=== PATIENT | male | born 1995 | race Caucasian/White ===

== ENCOUNTER 2022-08-05 14:47 | Emergency (ER) | payer BC, SELFPAY ==
[2022-08-05 14:57] VITALS: BP 123/75; PULSE 70; PULSE 82; RESP 16; RESP 19; O2SAT 95; O2SAT 97
[2022-08-05 14:58] VITALS: BP 123/75; PULSE 76; RESP 20; TEMP 36.6; O2SAT 98; BMI 40.0
--- NOTE | 2022-08-05 15:09 | ECG_ITS ---
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
--- NOTE | 2022-08-05 15:09 | XR_ITS ---
[address] [address] Patient Name: JADYN LINARES MRN: [id number] date: 1995 Sex: M Assigned Patient Location: ER Current Patient Location: ER Accession/Order Number: [id number] Exam Date: 08/05/2022 15:15 Report Date: 08/05/2022 15:40 At the request of: YENI GALICIA Procedure: XR chest 1V EXAMINATION: XR chest 1V HISTORY: chest tightness COMPARISON: No relevant comparison available. FINDINGS: LUNGS: No significant pulmonary parenchymal abnormalities. VASCULATURE: No increased pulmonary vasculature. PLEURA: No pneumothorax, effusion, or pleural thickening. CARDIAC: No cardiomegaly or cardiac silhouette abnormality. MEDIASTINUM: No visible mass or adenopathy. BONES: No fracture or visible bone lesion. OTHER: Negative. IMPRESSION: 1. No acute cardiopulmonary process. Electronically authenticated by: MUSTAPHA LUJAN Date: 08/05/2022 15:40
[2022-08-05 15:12] VITALS: PULSE 77
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
[2022-08-05] MEDS: IPRATROPIUM/ALBUTEROL SULFATE 3 ML AMPUL.NEB IH (15:55)
[2022-08-05 15:56] VITALS: O2SAT 95
[2022-08-05 16:08] VITALS: BP 128/74
[2022-08-05 16:12] VITALS: BP 123/75; PULSE 82; RESP 16; O2SAT 97
== END 2022-08-05 16:13 | disposition home or self-care (01) ==
PROVIDERS: Emergency Provider Emergency Medicine
DX: R05.9 Cough, unspecified (principal); R09.89 Other specified symptoms and signs involving the circulatory and respiratory systems
CPT/HCPCS: 71045; 93005; 94640; 99284

== ENCOUNTER 2024-07-19 17:46 | Emergency (ER) | payer BC, SELFPAY ==
[2024-07-19 17:48] VITALS: BP 128/81; PULSE 81; TEMP 36.8; O2SAT 100; BMI 37.4
--- NOTE | 2024-07-19 17:58 | ED_ITS ---
HPI HPI - General Adult General Chief complaint: Eye Problems Stated complaint: EYE PROBLEMS Time Seen by Provider: 07/19/24 17:57 Source: patient Limitations: no limitations History of Present Illness HPI narrative: Patient is a 28-year-old male who is presenting to the ER with chief complaint of right eye irritation. Patient wears contacts. Patient has slept with his contacts in for several days. Patient cannot get his contact out today. Patient was squeezing his right eye several times tried to get the contact which he eventually did. Patient has redness at the 3 to 6 o'clock position below the iris of the conjunctivo and sclera. Patient concerned with foreign body. Patient has some mild blurry vision to the right eye, no loss of vision, double vision. Patient denies any type of trauma. Patient does not have any trauma. No other acute complaints. Patient does have an eye physician, Dr. Marks. All systems are negative except as noted/marked. All systems reviewed and otherwise negative. Nurses note and vital signs reviewed and patient is not hypoxic. General: The patient appears well and in no apparent distress. Patient is resting comfortably on cart. Patient is not toxic, lethargic, or listless Skin: Warm, dry, no pallor noted. There is no rash noted. No petechiae, purpura. Head: Normocephalic, atraumatic Eye: Normal conjunctiva to left eye, patient has some redness and clear tearing from the right eye. See procedure note., no drainage, EOMI. PERRL Ears, Nose, Mouth, and Throat: oral mucosa is moist. Nares patent. Mouth without vesicles. Cardiovascular: Regular Rate and Rhythm, no murmur, gallop, rub Respiratory: Patient is in no distress, no accessory muscle use, lungs are clear to auscultation, no wheezing, rales or rhonchi Back: non-tender, GI: no tenderness. Musculoskeletal: Patient has full range of motion of all of the extremities, no motor, sensory, or focal neurological deficits Neurological: A&O x4, normal speech Psychiatric: Cooperative Related Data Previous Rx's ?Medication ?Instructions ?Recorded albuterol sulfate 90 mcg/actuation 2 inh inhalation Q8 H PRN shortness 08/05/22 aerosol inhaler (ProAir HFA) of breath or wheezing #8. 5 grams diclofenac sodium 1 % topical gel 2.25 inch topical QI D PRN 07/19/24 (Voltaren Arthritis Pain) Muscle/joint pain #100 grams Allergies Allergy/AdvReac Type Severity Reaction Status Date / Time No Known Drug Allergies Allergy Verified 08/05/22 14:58 Opioid HPI Opioid Management Most Recent Opioid Data: Last Pain Scale 4 Today, 18:01 [facility] Medical History (Updated 07/19/24 @ 18:21 by Mohsen Ramires MD) History of asthma ?Z87.09 - Personal history of other diseases of the respiratory system (ICD- 10) Social History Smoking status: Never smoker Little interest or pleasure in doing things: not at all Feeling down, depressed, or hopeless: not at all Exam Constitutional Vital Signs, click to edit/add: Last Vital Signs Temp 98.2 F 07/19/24 17:48 Pulse 81 07/19/24 17:48 Resp 18 07/19/24 17:48 BP 128/81 07/19/24 17:48 Pulse Ox 100 07/19/24 17:48 O2 Del Method Room Air 07/19/24 17:48 Course Vital Signs Vital signs: Vital Signs Temperature 98.2 F 07/19/24 17:48 Pulse Rate 81 07/19/24 17:48 Respiratory Rate 18 07/19/24 17:48 Blood Pressure 128/81 07/19/24 17:48 Pulse Oximetry 100 07/19/24 17:48 Oxygen Delivery Method Room Air 07/19/24 17:48 Temperature 98.2 F 07/19/24 17:48 Pulse Rate 81 07/19/24 17:48 Respiratory Rate 18 07/19/24 17:48 Blood Pressure 128/81 07/19/24 17:48 Pulse Oximetry 100 07/19/24 17:48 Oxygen Delivery Method Room Air 07/19/24 17:48 Medical Decision Making MDM Narrative Medical decision making narrative: Procedure note: Right eye evaluation. Patient's lower and upper eyelid was inverted, patient has no foreign body, no pieces of contact noted. Patient has no obvious ulceration noted. Patient had 3 drops of tetracaine placed in the right eye. Patient had good anesthetic effect. Patient had fluorescein drop placed in the right eye, patient has no obvious signs of corneal abrasion or corneal ulcer. Patient does have redness to the 3 to's o'clock position from the irritation to the conjunctival/sclera from him try to get the contact out. No abrasion noted. Patient most likely has early iritis. Patient has no obvious abrasion. Patient does have redness to the eye with clear tearing. No foreign body noted. Patient will be treated for iritis. Patient is given erythromycin ointment. Voltaren drops. Patient states that irritation is mild, home atropine drops were not prescribed at this time. Patient can alternate Tylenol and Motrin. Patient will follow-up with PCP. No question at discharge. Patient has an eye physician he can follow-up with as well, Dr. Marks. Discharge Plan Discharge Stand Alone Forms: Work/School Release Chief Complaint: Eye Problems Clinical Impression: Acute iritis of right eye Patient Disposition: Home, Self-Care Time of Disposition Decision: 18:18 Condition: Fair Prescriptions / Home Meds: New diclofenac sodium [Voltaren Arthritis Pain] 1 % gel 2.25 inch topical QID PRN (Reason: Muscle/joint pain) Qty: 100 0RF Rx Instructions: apply to affected areas No Action albuterol sulfate [ProAir HFA] 90 mcg/actuation HFA aerosol inhaler 2 inh inhalation Q8H PRN (Reason: shortness of breath or wheezing) Qty: 8.5 0RF Print Language: Monegasque Instructions: Iritis (ED), Corneal Abrasion (ED) Additional Instructions: Use Voltaren eyedrops as needed for the next 3 to 5 days. Alternate Tylenol and either Motrin, Advil, or ibuprofen every 4 hours to help with pain. Maximum dose of Tylenol is 3000 mg a day. Maximum dose of either Motrin, Advil, or ibuprofen is 2400 mg a day. Use erythromycin ointment for the next 7 to 10 days Call your eye physician and make an appointment for Monday or Monday for follow-up. Work note given. Secure contacts out every night before you go to sleep. Use [id number] rewetting drops to the right eye over the weekend as needed. Place ointment in your eye before bedtime as well. Wear your glasses for the next 7 to 10 days Referrals: Physician,Non-Staff, MD [Primary Care Provider] - 1 week
[2024-07-19] MEDS: TETRACAINE HCL 0.5% OP SOL 80 DROP/4 ML BOTTLE OP (18:03)
[2024-07-19] MEDS: FLUORESCEIN SODIUM 1 MG STRIP OP (18:04)
[2024-07-19] MEDS: ERYTHROMYCIN OP OINT 0.5% 1 GM TUBE OP (18:24)
== END 2024-07-19 18:38 | disposition home or self-care (01) ==
PROVIDERS: Emergency Provider Emergency Medicine
DX: H20.00 Unspecified acute and subacute iridocyclitis (principal)
CPT/HCPCS: 99283

== ENCOUNTER 2025-01-07 20:32 | Outpatient (OUT) | payer BC, SELFPAY ==
--- OUTSIDE RECORDS SUMMARY | 2024-10-31 10:45 | XMS_ITS ---
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 Blood clot in Urine Social History Sex Assigned At : Social History Observation Description Sex Assigned At Male Encounters Encounter Location Date Provider Diagnosis [address] [id number] 10/31/2024 Jody Mahoney Plan Of Treatment Next Appt Details Provider Name:Kraig Bolden, 03/24/2025 04:00:00 PM[facility] [address] [facility] [place] [id number], Progress Notes * Minor LINARESDOB:1995 ([age] yo M)Acc No.[id number]:10/31/2024 Medical Note Patient: Minor STEPHENSON :?Jody Mahoney APRN, FNP-CDOB:1995???Age: 29 Y???Sex:MaleDate:10/31/2024Phone:[phone]:[address] [place] [id number] Subjective: * Chief Complaints: * 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 * Medical History: Objective: * Vitals: Assessment: Plan: * Treatment: * Billing Information: * Visit Code: * Procedure Codes: * Electronic signature of KELSIE Stout on 01/07/2025 at 08:38 PM EST Sign off status: Pending * Provider: Get Mahoney APRN, FNP-Bisi Date: 0 10/31/2024 Generated for Printing/Faxing/eTransmitting on:?01/07/2025 08:38 PM EST
--- OUTSIDE RECORDS SUMMARY | 2024-12-17 10:30 | XMS_ITS ---
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 Role Phone Yuan Kraig Unavailable [phone] REASON FOR VISIT knee pain Social History Sex Assigned At : Social History Observation Description Sex Assigned At Male Encounters Encounter Location Date Provider Diagnosis Main [address] [place] [id number] 12/17/2024 Kraig Bolden Plan Of Treatment Next Appt Details Provider Name:Kraig Bolden, 03/24/2025 04:00:00 PM, [address] [place], [place], [id number], Progress Notes * Minor LINARESDOB:1995 (2 0 yo M)Acc No.[id number]:12/17/2024 Medical Note Patient: Minor STEPHENSON :?Kraig PedrozadDOB:1995???Age:29 Y???Sex:Male Date:12/17/2024Phone:[phone]:[address] [place], [id number] Subjective: * Chief Complaints: * 1 . Knee pain. * Medical History: Objective: * Vitals: Assessment: Plan: * Treatment: * Billing Information: * Visit Code: * Procedure Codes: * Electronic signature of AYDIN Mondragon on 01/07/2025 at 08:38 PM ESTSign off status: Pending * Provider: Lupe Bolden Date: Generated for Printing/Faxing/eTransmitting on:?01/07/2025 08:38 PM EST
--- OUTSIDE RECORDS SUMMARY | 2025-01-07 20:39 | XMS_ITS | Clinical Summary ---
Author Organization [facility] Address [address] 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
--- OUTSIDE RECORDS SUMMARY | 2025-01-07 20:39 | XMS_ITS | Patient Health Record ---
Author Organization [facility] Address [address] [place], [place] [id number] Care Team Providers Care Marbleizing Machine Tender Name Role Phone Addy Boldenin Unavailable [phone] MahoneyJody montelongo Unavailable [phone] Allergies No Known Allergies Results Component Value Reference Range Notes Urine Dip Reviewed date:11/01/2024 04:13:41 PM Interpretation: Performing Lab: Notes/Report: Bilirubin - Occult Gbzbu-Hpnkhee-Zdtjsfe-YTX-Evqqlfh-Bi3.0Protein-Specific Gravity1.015Color yellowAppearanceclear Reason For Referral Reason Z59.00 Homeless Diagnosis 1 Homeless (Z59.00) Referral Organization Main Referring Provider First Name Kraig Referring Provider Last Name Studd Referring Provider Speciality Physician Laborer [place] Referred Provider PRAPARE Referred Provider Specialty Public Healt or Welfare Agencies General Notes Hayley Whitaker 09/2024 07:40:37 AM >Community resources sent to the patient. Referral Priority Urgent Reason Z59.1 Inadequate [place] sing Diagnosis 1 Inadequate housing ( Z59.10) Referral Organization Main Referring Provider First Name Kraig Referring Provider Last Name Studd Referring Provider Speciality Physician Laborer [place] Referred Provider PRAPARE Referred Provider Specialty Public Healt h or Welfare Agencies General Notes Hayley Whitaker 09/2024 07:41:03 AM >Community resources sent to the patient. Referral Priority Urgent Reason Z59.8 Other Housing Problems Diagnosis 1 Housing instability (Z59.819) Referral Organization Main Referring Provider First Name Kraig Referring Provider Last Name Studd Referring Provider Speciality Physician Laborer [place] Referred Provider PRAPARE Referred Provider Specialty Public Healt or Welfare Agencies General Notes Hayley Whitaker 09/2024 07:40:03 AM >Community resources sent to the patient. Referral Priority Urgent Reason left knee pain Diagnosis 1 Left knee pain, unsp ecified chronicity (M25.562) Referral Organization Main Referring Provider First Name Kraig Referring Provider Last Name Yuan Referring Provider Speciality Physician Laborer Tanbark Referred Provider PT Services Referred Provider Specialty Physical The rapist General Notes Mary Dumont 10/28 04:12:34 PM >Initial notes in chart. ceb Referral Priority Routine Reason stop bang score of 6 Diagnosis 1 Sleep apnea-like beh avior (G47.39) Referral Organization Main Referring Provider First Name Kraig Referring Provider Last Name Yuan Referring Provider Speciality Physician Laborer [place] Referred Provider [facility] Referred Provider Specialty Sleep Medici ne Referral Priority Routine Reason multiple small fatty depostis on the back Diagnosis 1 Multiple lipomas (D1 7.9) Referral Organization Main Referring Provider First Name Kraig Referring Provider Last Name Yuan Referring Provider Speciality Physician Laborer Tanbark Referred Provider [facility] Referred Provider Specialty Dermatology Referral Priority Routine Medications Medication SIG (Take, Route, Frequency, Duration) Notes Start Date End Date Status Naproxen 500 MG 1 tablet with food o r milk as needed Orally every 12 hrs; Duration: 30 days 11/04/2024Not-Taking Social History Tobacco Use: Social History Observation Description Date Details (start date - stop date) Unknown Sex Assigned At : Social History Observation Description Sex Assigned At Male CAGE-AID Questionnaire (2018 Edition) Question Answer Notes Have you ever felt that you ought to cut down on your drinking or drug use? No Have people annoyed you by criticizing your drinking or drug use?NoHave you ever felt bad or guilty about your drinking or drug use?NoHave you ever had a drink or used drugs first thing in the morning to steady your nerves or to get rid of a hangover?NoCAGE-AID Ngxlu9WgrffihazmmvjeUcytyvtxHPQJTDU Question Answer Notes Date Completed/Updated: 12/17/2024 deandre nt entered data What is your current housing situation? I have housing patient entered data Are you worried about losing your housing? No patient entered data What is the highest level of school that you have finished? 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 Check all that apply I do not have problems meeting my needs Has lack of transportation kept you from medical appointments, meetings, work or from getting things needed for daily living?NoHow often do you see or talk to people that you care about and feel close to? (For example: talkingto friends on the phone, visiting friends or family, going to yazdanism or club meetings)More than 5 times a weekpatient entered dataHow stressed are you? Stress is when someone feels tense, nervous, anxious, or can't sleep at nightbecause their mind is troubledNot at allpatient entered dataIn the past year have you spent more than 2 nights in a row in a custodial, half-way, nursing home center, orjuvenile correctional facility?Nopatient entered dataAre you a refugee?Nopatient entered dataWhat country are you from?[place] Statespatient entered dataDo you feel physically and emotionally safe where you currently live?Yespatient entered dataIn the past year, have you been afraid of your partner or ex-partner?Nopatient entered dataPRAPARE Score:2Tobacco Control (Standard) Question Answer Notes Tobacco use: Uses tobacco in other forms Additional Findings: Tobacco userChews tobacco Problems Problem Type SNOMED Code ICD Code Onset Dates Problem Status W/U Status Risk Notes Problem Tobacco user (308516387) Cigaret te nicotine dependence without complication (F17.210) ActiveconfirmedProblemSleep apnea (85439071)Sleep apnea-like behavior (G47.39) ActiveconfirmedProblemObese class II (816226765700302)BMI 39.0-39.9,adult (Z68.39)ActiveconfirmedProblemSevere acute respiratory syndrome coronavirus 2 (SARS-CoV-2) not detected (Z20.822)ActiveconfirmedDescription:COVID-19 virus not detectedProblemEncounter for screening for severe acute respiratory syndrome coronavirus 2 (SARS-CoV-2) infection (Z11.52)Activeconfirmed Description:Encounter for screening for COVID-19 Vital Signs Heart Rate 84 /min 12/17/2024 Kofi Jeannette 12/17/2024 04:11:16 PM EDT > Temperature 100.2 degrees Fahrenheit 12/17/2024 Jay Jeannette wilson 12/17/2024 04:11:16 PM EDT > Respiratory Rate 20 /min 12/17/2024 Jose Kirby 12/17/2024 04:11:16 PM EDT > Blood pressure diastolic 74 mm Hg 12/17/2024 Jeannetet Reese 12/17/2024 04:11:16 PM EDT > Oximetry 96 % 12/17/2024 Jeannette Kirby 12/17/2024 04:11:16 PM EDT > Height-cm 182.88 cm 12/17/2024 Jeannette Kirby 12/17/2024 04:11:16 PM EDT > Weight-kg 132.4 kg 12/17/2024 Jeannette Kirby 12/17/2024 04:11:16 PM EDT > Height 72 in 12/17/2024 Jeannette Kirby 12/17/2024 04:11:16 PM EDT > Blood pressure systolic 114 mm Hg 12/17/2024 Jeannette Fernández 12/17/2024 04:11:16 PM EDT > Weight 291.9 lbs 12/17/2024 Jeannette Kirby 12/17/2024 04:11:16 PM EDT > BMI 39.58 kg/m2 12/17/2024 Jeannette Kirby 12/17/2024 04:11:16 PM EDT > Encounters Encounter Location Date Provider Diagnosis Main [address] [place], [place] [id number] 11/01/2024 Kraig Bolden Hematuria R31.9 ; Ci garette nicotine dependence without complication F17.210 ; Dietary counseling Z71.3 ; Exercise counseling Z71.82 ; BMI 39.0-39.9,adult Z68.39 ; Homeless Z59.00 ; Inadequate housing Z59.1 and Other problems related to housing and economic circumstances Z59.8 Main [address] [place], [place] [id number] 11/04/2024 Kraig Bolden Left knee pain, unsp ecified chronicity M25.562 [facility] [address] [facility] [place] [id number] 12/17/2024 Kraig Studd Sleep apnea-like beh avior G47.39 ; Lipoma of back D17.1 ; Multiple lipomas D17.9 and Left knee pain, unspecified chronicity M25.562 Assessments Encounter Date Diagnosis (ICD Code) Assessment Notes Treatment Notes Treatment Clinical Notes Section Notes 11/04/2024 Left knee pain, unspecified slasher nicity (ICD-10 - M25.562) pts left knee is likely MSK related at this time consider meniscus, patella fermorla syndrome, arthritis at this point do not belvie ortho referral is neccessary start PT will start naproxen educated to take with food and drink plenty of water pt agreeable with plan 12/17/2024Sleep apnea-like behavior (ICD-10 - G47.39) stop bang of 6 refer to sleep medicine at this time 12/17/2024Lipoma of back (ICD-10 - D17.1)11/01/2024Hematuria (ICD-10 - R31.9) There are no signs of hematuria in the UA at this point I do not have any concerns educated patient that if this happens again to be seen immediately pt verbalized understanding 11/01/2024igarette nicotine dependence without complication (ICD-10 - F17.210) Patient provided with [id number] phone line. Uses smokeless tobacco 12/17/2024Multiple lipomas (ICD-10 - D17.9) likely lipomas i will refer to dermatolgy for further evaluation 12/17/2024Left knee pain, unspecified chronicity (ICD-10 - M25.562) Continue the PT exercise if there is an exacerbation I will consider a knee injection for an acute flare however hopeful to avoid this due to patients age of only 29 years old 11/01/2024Dietary counseling (ICD-10 - Z71.3)11/01/2024MI 39.0-39.9,adult (ICD- 10 - Z68.39)11/01/2024Exercise counseling (ICD-10 - Z71.82)11/01/2024Homeless (ICD-10 - Z59.00)11/01/2024Inadequate housing (ICD-10 - Z59.1)11/01/2024Other problems related to housing and economic circumstances (ICD-10 - Z59.8) Plan Of Treatment Next Appt Details Provider Name:Kraig Bolden, 03/24/2025 04:00:00 PM, [address], [place], [id number], Insurance Providers Payer Name Payer Address Payer Phone Subscriber Number Group Number Insured Name Patient Relationship to Insured Coverage Start Date Coverage End Date [facility] [address] [place], [place] [id number] Minor [place] Self - patient is the insured COVID19 Uninsured Testing [facility] Cares Act Provider [address] [address] [place], [place] [id number], MarkSelf - patient is the
--- OUTSIDE RECORDS SUMMARY | 2025-01-07 20:39 | XMS_ITS | Clinical Summary ---
Author Organization [facility] Address [address] [place] [address] Care Team Providers Care Internet Marketing Strategist Name Role Phone Unavailable Primary Care Provider Unavailabl e Social History Tobacco UseTypesPacks/DayYears UsedDateSmoking Tobacco: Never AssessedSex and Gender InformationValueDate RecordedSex Assigned at BirthNot on fileLegal Sex Male05/11/2022 6:42 PM EDTGender IdentityNot on fileSexual OrientationNot on file Plan of Treatment Not on file
--- OUTSIDE RECORDS SUMMARY | 2025-01-07 20:39 | XMS_ITS | Clinical Summary ---
Author Organization [employer] [facility] Address [id number] [address] [place] [address] Care Team Providers Care Bundler Seasonal Greenery Name Role Phone No Pcp, No Pcp Primary Care Provider Unavailabl e Allergies No known active allergies Medications MedicationSigDispense QuantityRefillsLast FilledStart DateEnd DateStatus ibuprofen (ADVIL,MOTRIN) 600 mg tablet Take 1 tablet (600 mg total) by mouth every 6 (six) hours as needed for pain. 30 tablet 07/17/2021ctive lidocaine (LIDODERM) 5 % Place 1 patch on the skin daily. Remove & Discard patch within 12 hours or as directed by MD 15 patch 07/17/2021ctive ondansetron ODT (ZOFRAN ODT) 4 mg disintegrating tablet Dissolve 1 tablet (4 mg total) on tongue every 8 (eight) hours as needed for nausea for up to 15 doses. 15 tablet 3Active ondansetron (ZOFRAN) 4 mg tablet Take 1 tablet (4 mg total) by mouth every 8 (eight) hours as needed for nausea or vomiting for up to 12 doses. 12 tablet 5Active Social History Tobacco UseTypesPacks/DayYears UsedDateSmoking Tobacco: NeverSmokeless Tobacco: CurrentChewAlcohol UseStandard Drinks/WeekCommentsYes0 (1 standard drink = 0.6 oz pure alcohol)weekendsChildcareAnswerDate LpacafnjDydrenlogNxspgvo89/12/2019 EmploymentAnswerDate LypuifgnMgqslzkrthGfosvrd52/12/2019Hunger ScreeningAnswer Date RecordedWithin the past 12 months we worried whether our food would run out before we got money to buy more.Never True02/15/2023Within the past 12 months the food we bought just didn't last and we didn't have money to get more.Never True02/15/2023urpose - LifeAnswerDate RecordedPurpose and direction in life Lvyfxrd4304/09/2020ex and Gender InformationValueDate RecordedSex Assigned at BirthNot on fileLegal RqeCghl7510/02/2014 11:50 AM EDTGender IdentityNot on file Sexual OrientationNot on file Last Filed Vital Signs Vital SignReadingTime TakenCommentsBlood Uwiqacol588/95003/05/2024 7:13 PM EST Xfyoi564903/05/2024 7:13 PM JKIIniknehfcjd36.1 ??C (98.8 ??F)03/05/2024 7:13 PM ESTRespiratory Nqds233903/05/2024 7:13 PM ESTOxygen Vygytuyxkm62%03/05/2024 7:13 PM ESTInhaled Oxygen Concentration--Faicyd976.8 kg (295 lb)03/05/2024 7:13 PM LGFIktpbe224.9 cm (6')03/05/2024 7:13 PM ESTBody Mass Index40.01003/05/2024 7:13 PM EST Plan of Treatment Health MaintenanceDue DateLast DoneCommentsDTaP,Tdap and Td Vaccines (6 - Tdap) , 12/18/1995, 05/08/1995, Additional history exists Depression Vdxyxkvif89/12/2007dult BMI Follow Up Plan2012Tobacco Ztkgoxyxx57Influenza Ijukdxk6710/28/2024dult BMI Screening Medical Devices Not on file Insurance Care Teams Team MemberRelationshipSpecialtyStart DateEnd Date No Pcp, No Pcp SERGIO Tabares [id number] [facility] Xhdoavcz49/20/23
== END 2025-01-07 20:33 | disposition home or self-care (01) ==
DX: G47.33 Obstructive sleep apnea (adult) (pediatric) (principal)
CPT/HCPCS: 95810

== ENCOUNTER 2025-01-28 19:41 | Outpatient (OUT) | payer BC, SELFPAY ==
--- OUTSIDE RECORDS SUMMARY | 2025-01-28 19:44 | XMS_ITS | Clinical Summary ---
Author Organization [employer] [facility] Address [id number] [address] [place] [address] Care Team Providers Care Canvas Shop Laborer Name Role Phone No Pcp, No Pcp [...] standard drink = 0.6 oz pure alcohol)weekendsChildcareAnswerDate QjsxsenzPnzbkjdacZkpghdq85/12/2019 EmploymentAnswerDate YlthiyniMdggjskypeSkfitas06/12/2019Hunger ScreeningAnswer Date RecordedWithin the past 12 months we worried whether our food would run out before we got money to buy more.Never True02/15/2023Within the past 12 months the food we bought just didn't last and we didn't have money to get more.Never True02/15/2023urpose - LifeAnswerDate RecordedPurpose and direction in life Manxbal1704/09/2020ex and Gender InformationValueDate RecordedSex Assigned at BirthNot on fileLegal LpvPpya9810/02/2014 11:50 AM EDTGender IdentityNot on file Sexual OrientationNot on file Last Filed Vital Signs Vital SignReadingTime TakenCommentsBlood Tkyppirf460/95003/05/2024 7:13 PM EST Ygyps498203/05/2024 7:13 PM DUUUxliwilklhm45.1 ??C (98.8 ??F)03/05/2024 7:13 PM ESTRespiratory Dlwo775203/05/2024 7:13 PM ESTOxygen Wwltewhorr01%03/05/2024 7:13 PM ESTInhaled Oxygen Concentration--Ygfsgj622.8 kg (295 lb)03/05/2024 7:13 PM SHJLnspca918.9 cm (6')03/05/2024 7:13 PM ESTBody Mass Index40.01003/05/2024 7:13 PM EST Plan of Treatment Health MaintenanceDue DateLast DoneCommentsDTaP,Tdap and Td Vaccines (6 - Tdap) , 12/18/1995, 05/08/1995, Additional history exists Depression Euvnprbvg52/12/2007dult BMI Follow Up Plan2012Tobacco Oacpmkfyo89Influenza Vkajkbo3710/28/2024dult BMI Screening Medical Devices Not on file Insurance Care Teams Team MemberRelationshipSpecialtyStart DateEnd Date No Pcp, No Pcp SERGIO Tabares [id number] [facility] Ozwfreuz38/20/23
--- OUTSIDE RECORDS SUMMARY | 2025-01-28 19:44 | XMS_ITS | Clinical Summary ---
Author Organization [facility] Address [address] [place] [address] Phone Care Team Providers Care Structural Steel Ironworker Name Role Phone Unavailable Primary Care Provider Unavailabl e Social History Tobacco UseTypesPacks/DayYears UsedDateSmoking Tobacco: Never AssessedSex and Gender InformationValueDate RecordedSex Assigned at BirthNot on fileLegal Sex Male09/28/2022 12:41 AM EDTGender IdentityNot on fileSexual OrientationNot on file Plan of Treatment Not on file
--- OUTSIDE RECORDS SUMMARY | 2025-01-28 19:44 | XMS_ITS | Clinical Summary ---
Author Organization [facility] Address [address] [place] [address] Care Team Providers Care Drapery Estimator Name Role Phone Unavailable Primary Care Provider Unavailabl e Social History Tobacco UseTypesPacks/DayYears UsedDateSmoking Tobacco: Never AssessedSex and Gender InformationValueDate RecordedSex Assigned at BirthNot on fileLegal Sex Male05/11/2022 6:42 PM EDTGender IdentityNot on fileSexual OrientationNot on file Plan of Treatment Not on file
== END 2025-01-28 19:42 | disposition home or self-care (01) ==
DX: G47.33 Obstructive sleep apnea (adult) (pediatric) (principal)
CPT/HCPCS: 95811